=== PATIENT | male | born 1930 | race Caucasian/White ===

== ENCOUNTER 2018-11-01 06:10 | Observation (INO) ==
--- NOTE | 2018-10-19 16:12 | Anesthesia Progress Note ---
Date of Encounter: 10/19/18 Time of Encounter: 15:55 Anesthesia Note - Note Note: 10/19/18 15:55 Patient is a 88 y/o male with h/o bladder tumor scheduled for TURBT October 02. Patient's additional history includes CAD with CABG x 3, cardiac stent, 10+ years ago, Bowel resection 2003,Malignant melanoma, Robert. LE edema, and dementia. The family not wishing to not further worsen his cognitive function, does not want him to have a general anesthetic for this procedure.. They want him to have a saddle block. Since a saddle block is not without side effects, and the cardiac status of the patient hasn't been assessed in approximately 3 years, a cardiac workup is recommended before the TURBT. If cardiac status is acceptable a saddle block/spinal with a obturator nerve block would be the preferred anesthetic. The Family was given the Cardiology Office phone number to schedule an appointment. Dr. Estevan Grijalva
[2018-11-01] MEDS ORDERED: CeFAZolin Syr 2,000MG/20 ML 2,000 MG/20 ML SYRINGE IVPB ONE (06:32)
[2018-11-01] MEDS ORDERED: Ringers Solution, Lactated 1,000 ML IVC SCH (06:45)
[2018-11-01] MEDS ORDERED: Propofol 500 MG/50 ML INFUS..BTL ONE ×2 (06:48→07:11)
[2018-11-01] MEDS ORDERED: Lidocaine -MPF 2% 2 ML VIAL ONE (06:55)
[2018-11-01] MEDS ORDERED: *HR* Rocuronium Bromide 50 MG/5 ML VIAL ONE (06:55)
[2018-11-01] MEDS ORDERED: *HR* FentaNYL (PF) 100 MCG/2 ML VIAL ONE (06:58)
--- NOTE | 2018-11-01 07:10 | Anesthesia Evaluation PreOp ---
Date of Encounter: 11/01/18 Time of Encounter: 07:06 - Past History Planned Operation: TURBT Cardiac History: CO, HTN, Hyperlipidemia, Cardiac Surgery (CABG x 3) Pulmonary History: Denies Any Significant HX, Snore FIELD PARTY MANAGER History: Other (severe dementia) Other Medical History: Denies Any Significant HX Anesthesia History: No Prior Anesthetic Complications, Past Anesthesia Alcohol Use: none Drug use: none Medications and Allergies Amlodipine Besylate 5 mg PO DAILY 11/01/18 [History] Aspirin [Lo-Dose Aspirin EC] 81 mg PO DAILY 11/01/18 [History] Atorvastatin [Lipitor] 40 mg PO HS 11/01/18 [History] Divalproex Sodium 250 mg PO BID 11/01/18 [History] Furosemide [Lasix] 20 mg PO DAILY 11/01/18 [History] Lisinopril [Zestril] 20 mg PO DAILY 11/01/18 [History] Memantine HCl 5 mg PO BID 11/01/18 [History] Sertraline [Zoloft] 25 mg PO DAILY 11/01/18 [History] Allergy/AdvReac Type Severity Reaction Status Date / Time No Known Allergies Allergy Verified 11/01/18 07:31 - Meds/Allergy Pre-op Review Medications Reviewed: Yes Allergies Reviewed: Yes Beta Blockers on Current Med List: No Anesthesia Results - Labs Laboratory Tests 10/19/18 10/19/18 14:38 14:38 WBC 4.8 Hgb 10.0 L Hct 30.3 L Plt Count 152 Potassium 4.6 Creatinine 1.58 H - Imaging EKG: report reviewed (10/19/2018 SINUS RHYTHM WITH SINUS ARRHYTHMIA WITH FIRST DEGREE AV BLOCK MARKED LEFT AXIS DEVIATION RIGHT BUNDLE BRANCH BLOCK) Additional studies: 10/26/2018 Echo Impressions: LVEF 60%. Atypical septal motion consistent with post-operative status. Mild left ventricular diastolic dysfunction. Definity echo contrast was used. Right ventricle is mildly dilated with borderline mild reduction in systolic function. Mild tricuspid regurgitation. No pulmonary hypertension. Aortic Valve * Trileaflet aortic valve. * No aortic stenosis. * Aortic valve not well visualized. * Trace aortic regurgitation. Mitral Valve * Normal mitral valve structure. * No mitral stenosis. * Trace mitral regurgitation. Tricuspid Valve * Tricuspid valve not well visualized. * Mild tricuspid regurgitation. * Estimated RA pressure is 3 mmHg. * Estimated RVSP is 28 mmHg. * No pulmonary hypertension. Pulmonic Valve * Pulmonic valve is not well visualized. * No pulmonic stenosis. * No pulmonic regurgitation. Pulmonary Artery * Pulmonary artery not well visualized. Aorta * Normally sized aortic root. Pericardium * There is no pericardial effusion present. Interatrial Septum * No evidence of PFO by color Doppler. IVC * The IVC is not dilated. 10/26/2018 Stress Impression: Small sized, partially fixed moderate to severe intensity perfusion defect involving the apical lateral segments. This may represent prior infarct with gilbert-infarct ischemia. SSS=3 Pharmacologic stress ECG is negative for ischemia at level of heart rate achieved. No appreciable change from baseline ECG. Gated EF = 61%. Abnormal findings communicated to ordering provider. Anesthesia Exam O2 Sat Height 1.75 m Weight 104.326 kg O2 Sat by Pulse Oximetry 97 Vital Signs Temp Pulse Resp BP Pulse Ox 98.2 F 63 18 121/60 97 11/01/18 06:44 11/01/18 06:44 11/01/18 06:44 11/01/18 06:44 11/01/18 06:44 Height: 5'9'' Weight: 230 lbs NPO (# of Hours): 8 Pain Scale Used: Unable to assess - HEENT Pupil (Motor): EOMI Mallampati: III Teeth: Normal Oral Opening: Greater than 3 - FIELD PARTY MANAGER LOC: Confused FIELD PARTY MANAGER Motor: Normal RUE, Normal LUE, Normal RLE, Normal LLE, Normal Face FIELD PARTY MANAGER Sensory: Normal: RUE, LUE, RLE, LLE, Face - Cardiac Rhythm: Regular Murmur: None - Pulmonary Breath Sounds: bilateral Clear Respiratory Effort: Symmetrical Anesthesia Assess/Plan ASA Score: 4 (Family/POA requests SAB. Family/POA understand that there is possibility of failed spinal. Family agrees to GA if that was to happen.) Level of consciousness: Cooperative, Oriented, Tranquil Anesthetic Plan: General, Spinal Monitoring Plan: Standard Monitors Recovery Plan: PACU
--- NOTE | 2018-11-01 07:32 | Urology History & Physical ---
Date of Encounter: 11/01/18 Time of Encounter: 07:30 Assessment and Plan (1) Bladder tumor Current Visit: Yes Status: Acute Proceed with TURBT today. Patient will be brought in for outpatient in a bed status. May require placement. We will have social workers evaluate the patient. The son is comfortable with the plan of care I did add possible bilateral retrograde pyelogram and ureteral stent placement if there appears to be ureteral involvement. History of Present Illness Chief complaint: gross hematuria HPI: Mr. Hinojosa is a 88 year old male with dementia and gross hematuria. Outside imaging shows multiple large bladder tumors. Here for TURBT. He has had some new left-sided pelvic discomfort Past Med Surg Social Fam HX - Past Medical History Medical history: cancer, myocardial infarction Additional medical history: Malignant Melanoma - Forehead. Actinic Keratoses. Edema of Bilateral Lower Extremities. Colon Cancer. Anxiety. Dementia Psychiatric history: no psych history - Past Surgical History Additional surgical history: Tripple Bypass. Cardiac Stent Placement. Colon Cancer Removed. Brain Sx for Blood Clot - Social History Smoking Status: Unknown if ever smoked Smokeless Tobacco Status: No Alcohol use: none Drug use: none Medications and Allergies Allergy/AdvReac Type Severity Reaction Status Date / Time No Known Allergies Allergy Verified 11/01/18 07:31 Review of Systems ROS unobtainable: due to mental status Exam Initial Vital Signs Temp Pulse Resp BP Pulse Ox 98.2 F 63 18 121/60 97 11/01/18 06:44 11/01/18 06:44 11/01/18 06:44 11/01/18 06:44 11/01/18 06:44 - General physical appearance Present: no distress, chronically ill Urology Results - Labs All other labs normal.
[2018-11-01] MEDS ORDERED: Isovue-300 50 ML VIAL ONE (08:02)
[2018-11-01] MEDS ORDERED: EPHEDrine 50 MG/ML VIAL ONE (08:10)
--- NOTE | 2018-11-01 08:15 | Anesthesia Procedures ---
Date of Encounter: 11/01/18 Time of Encounter: 07:45 Procedures: Anesthesia - Epidural/Spinal Patient ID/Chart reviewed: Yes Patient examined: Yes Consent Obtained: Yes Supplemental Oxygen: Mask Supplemental Oxygen Rate (L/min): 10 Site Prep: Sterile prep and drape, Povidone-Iodine 1% Patient position: right lateral decubitus Local Anesthetic: Lidocaine 1% Interspace Used: L3-L4 Blood: No CSF: Yes Paresthesia: No Spinal Needle Gauge: 24 Spinal Dose: 15mg Vitals + FHT's: Last Vital Signs Temp 98.2 F 11/01/18 06:44 Pulse 63 11/01/18 06:44 Resp 18 11/01/18 06:44 BP 121/60 11/01/18 06:44 Pulse Ox 97 11/01/18 06:44
--- NOTE | 2018-11-01 10:07 | Operative Note ---
Date of procedure: 11/01/18 Pre-op diagnosis: large bladder tumor Post-op diagnosis: same Procedure: large >5 cm TURBT Anesthesia: GETA Surgeon: Peet Chiu Was there an housekeeper/laundry assistant present: No Estimated blood loss (cc): 20 Specimen: bladder tumors Condition: stable Disposition: PACU Procedure in Detail: PROCEDURE IN DETAIL: Patient was taken back to the operating room, positioned supine on the operating table. Anesthesia was applied without complication. They were moved into dorsal lithotomy. Careful attention was maintained to cushion pressure points for patient's safety. The patient was prepped and draped in sterile fashion. Time-out was performed to confirm the proper patient and procedure. The resectoscope with visual obturator was then inserted through the urethra. Once I passed the sphincter I encountered a large tumor burden within the prostatic urethra which extended all the way in to the bladder. It appears that the large bladder tumor which basically surrounded his bladder neck had extended down through the prostatic urethra. I began by resecting all visible tumor from the prostatic urethra which basically amounted to performing a TURP. The bulk of the patient's tumor burden was on the left bladder neck and extended anteriorly involving the majority of the anterior bladder wall. The tumor was very large and involved an estimated 25-50% of the bladder wall. The patient had multiple additional exophytic tumors along the posterior bladder wall which were separate from the main tumor volume near the bladder neck. Extensive resection was undertaken to remove the visible tumor surrounding the bladder neck. I did identify the right ureteral orifice and it was not involved in the resection. I avoided extensive cauterization surrounding the ureteral orifice. It appeared the left trigone was more involved by tumor and I minimized my resection around the expected area of the ureteral orifice but it was not identified during the procedure. Due to the advanced nature of this tumor complete resection was highly unlikely but I did feel that I was able to resect a bulk of the visible tumor involving his bladder and prostatic urethra. Extensive time was spent providing hemostasis by fulgurating the resection bed. I placed a 22-Russian 3-way catheter at the end of the procedure and had return of very light hematuric urine. I irrigated multiple times and there was no issue. I had an extensive conversation with the patient's family following the procedure regarding the findings during the procedure. We discussed that the tumor was more extensive than the preoperative imaging suggested. With his advanced age curative management is unlikely. We also discussed the possibility that he could develop obstruction of the ureters based on the resection. I plan to check a BMP in the morning to monitor for stability of his renal function. If his renal function worsens, nephrostomy tube placement may not be in this patient's best interest.
--- NOTE | 2018-11-01 10:10 | Anesthesia Evaluation Post Op ---
Date of Encounter: 11/01/18 Time of Encounter: 10:05 - Vital Signs Vital Signs: Vital Signs/O2 Sat/Glucose, Most Recent Temp Pulse Resp BP Pulse Ox 97.5 F L 69 16 113/62 100 11/01/18 09:19 11/01/18 09:49 11/01/18 09:49 11/01/18 09:49 11/01/18 09:49 - Lungs Lungs: Clear Ascult./Percussion (encouraged to cough with fair effort) - Airway Airway: Non-obstructed - Cardiovascular Regular Rate - Mental Status Mental Status: Baseline Status - Pain Pain Scale: 0 (offers no assessment when asked) - Nausea Vomiting Nausea Vomiting: Not Present - Hydration Hydration: Ice chips - Discharge PostOp Status: Transfer Patient to floor
[2018-11-01] MEDS ORDERED: Naloxone 0.4 MG/ML INJ IVP PRN (18:07)
[2018-11-01] MEDS ORDERED: *HR* Promethazine 25 MG/ML VIAL IVP PRN (18:07)
[2018-11-01] MEDS ORDERED: Acetaminophen IV 1,000 MG/100 ML INFUS..BTL IVPB PRN (18:07)
[2018-11-01] MEDS ORDERED: *HR* Belladonna Alkaloids/Opium 30 MG RECTAL SUPPOSITORY RC PRN (18:07)
[2018-11-01] MEDS: 0.9 % Sodium Chloride 1,000 ML IVC SCH (18:33)
[2018-11-01] MEDS: Divalproex (12 HR) 250 MG TABLET PO SCH (19:37)
[2018-11-02 02:20] LABS: Basophils % 0.4 %; Eosinophils % 0.5 %; Hematocrit 25.3 % (37.5-50.1); Hemoglobin 8.4 g/dL (12.9-16.9); Immature Granulocytes % 0.2 % (0-4); Lymphocytes # 0.4 K/mcL (0.6-4.6); Lymphocytes % 6.5 %; Mean Corpuscular HGB Conc 33.2 g/dL (31.6-35.5); Mean Corpuscular Hemoglobin 32.7 pg (28.0-33.3); Mean Corpuscular Volume 98.4 fL (83.0-100.0); Mean Platelet Volume 10.7 fL (9.4-12.4); Monocytes # 0.5 K/mcL (0.0-1.3); Monocytes % 9.7 %; Neutrophils # 4.6 K/mcL (1.6-8.9); Platelet Count 111 K/mcL (140-400); Red Blood Count 2.57 M/mcL (4.19-5.50); Red Cell Distribution Width 14.9 % (11.5-14.5); Segmented Neutrophils % 82.7 %; White Blood Count 5.6 K/mcL (4.3-11.1)
[2018-11-02] MEDS: Lisinopril 20 MG TABLET PO SCH (08:07)
[2018-11-02] MEDS: Furosemide 20 MG TABLET PO SCH (08:07)
[2018-11-02] MEDS: Divalproex (12 HR) 250 MG TABLET PO SCH ×2 (08:07→20:53)
[2018-11-02 08:14] LABS: BUN/Creatinine Ratio 23 (6-26); Blood Urea Nitrogen 30 mg/dL (8-23); Calcium 8.5 mg/dL (8.6-10.3); Carbon Dioxide 29 mEq/L (23-29); Chloride 103 mEq/L (98-107); Glucose 66 mg/dL (70-105); Osmolality,Calculated 288 (280-300); Potassium 5.1 mEq/L (3.5-5.1); Sodium 137 mEq/L (136-145); eGFR For African Americans > 60 (> 60); eGFR For Non-African Americans 51 (> 60)
[2018-11-02] MEDS: 0.9 % Sodium Chloride 1,000 ML IVC SCH (08:18)
[2018-11-02] MEDS ORDERED: amLODIPine 5 MG TABLET PO SCH (09:00)
--- NOTE | 2018-11-02 09:07 | Urology Progress Note ---
<Jeanna Zuniga N - Last Filed: 11/02/18 09:04> Date of Encounter: 11/02/18 Time of Encounter: 08:05 - Assessment and Plan (1) Bladder tumor Current Visit: Yes Status: Acute Assessment and plan: Patient is an 88-year-old male who presents one day status post TURBT for a large, greater than 5 cm bladder tumor. Unfortunately, patient traumatically displaced his catheter overnight, and a new catheter was replaced. CBI was discontinued, and urine is a transparent, fruit punch color. I will discuss these findings with Dr. Chiu to see if patient will be discharged with or without his catheter. We are awaiting a social work consultation in order to see if patient can be placed at a fci facility upon discharge. Progress Note Narrative: POD #1. Patient seen and examined sitting upright in bed in no apparent distress. Patient's son and OCCUPATIONAL ANALYST sitter is at bedside. Campa catheter is indwelling and draining transparent, fruit punch urine into bedside bag. Objective Initial Vital Signs Temp Pulse Resp BP Pulse Ox 98.2 F 63 18 121/60 97 11/01/18 06:44 11/01/18 06:44 11/01/18 06:44 11/01/18 06:44 11/01/18 06:44 - General physical appearance Present: no distress, no pain - Respiratory Present: normal expansion, normal respiratory effort - Abdomen Present: soft, non tender. Absent: distended - Genitourinary Urine Appearance: Present: Hematuria (Transparent fruit punch) - Integumentary Present: no rash, no abnormal pigmentation - Musculoskeletal Present: normal posture - Psychiatric Present: oriented to person, speech is normal, other (Patient with dementia). Absent: oriented to time, oriented to place, memory intact - Labs 11/02/18 01:40 11/02/18 07:28 Diabetes panel 11/02/18 Range/Units 07:28 Sodium 137 (136-145) mEq/L Potassium 5.1 (3.5-5.1) mEq/L Chloride 103 (98-107) mEq/L Carbon Dioxide 29 (23-29) mEq/L BUN 30 H (8-23) mg/dL Creatinine 1.32 H (0.70-1.30) mg/dL Glucose 66 L (70-105) mg/dL Calcium 8.5 L (8.6-10.3) mg/dL Calcium panel 11/02/18 Range/Units 07:28 Calcium 8.5 L (8.6-10.3) mg/dL Pituitary panel 11/02/18 Range/Units 07:28 Sodium 137 (136-145) mEq/L Potassium 5.1 (3.5-5.1) mEq/L Chloride 103 (98-107) mEq/L Carbon Dioxide 29 (23-29) mEq/L BUN 30 H (8-23) mg/dL Creatinine 1.32 H (0.70-1.30) mg/dL Glucose 66 L (70-105) mg/dL Calcium 8.5 L (8.6-10.3) mg/dL Adrenal panel 11/02/18 Range/Units 07:28 Sodium 137 (136-145) mEq/L Potassium 5.1 (3.5-5.1) mEq/L Chloride 103 (98-107) mEq/L Carbon Dioxide 29 (23-29) mEq/L BUN 30 H (8-23) mg/dL Creatinine 1.32 H (0.70-1.30) mg/dL Glucose 66 L (70-105) mg/dL Calcium 8.5 L (8.6-10.3) mg/dL Consult Discharge Plan - Plan Referrals: Otto Cheatham, [Primary Care Provider] - <Pete Chiu - Last Filed: 11/02/18 17:07> Date of Encounter: 11/02/18 - Assessment and Plan (1) Bladder tumor Current Visit: Yes Status: Acute Assessment and plan: Patient seen and examined by Ilia in the afternoon. Agree with physician assistant site manager assessment and plan. Patient was denied fci placement at the first facility. Kidney function is stable. Urine is starting to clear and his transparent set afternoon. We have elected to remove the catheter to minimize potential for traumatic catheter removal Objective Initial Vital Signs Temp Pulse Resp BP Pulse Ox 98.2 F 63 18 121/60 97 11/01/18 06:44 11/01/18 06:44 11/01/18 06:44 11/01/18 06:44 11/01/18 06:44 - Labs 11/02/18 01:40 11/02/18 07:28 Diabetes panel 11/02/18 Range/Units 07:28 Sodium 137 (136-145) mEq/L Potassium 5.1 (3.5-5.1) mEq/L Chloride 103 (98-107) mEq/L Carbon Dioxide 29 (23-29) mEq/L BUN 30 H (8-23) mg/dL Creatinine 1.32 H (0.70-1.30) mg/dL Glucose 66 L (70-105) mg/dL Calcium 8.5 L (8.6-10.3) mg/dL Calcium panel 11/02/18 Range/Units 07:28 Calcium 8.5 L (8.6-10.3) mg/dL Pituitary panel 11/02/18 Range/Units 07:28 Sodium 137 (136-145) mEq/L Potassium 5.1 (3.5-5.1) mEq/L Chloride 103 (98-107) mEq/L Carbon Dioxide 29 (23-29) mEq/L BUN 30 H (8-23) mg/dL Creatinine 1.32 H (0.70-1.30) mg/dL Glucose 66 L (70-105) mg/dL Calcium 8.5 L (8.6-10.3) mg/dL Adrenal panel 11/02/18 Range/Units 07:28 Sodium 137 (136-145) mEq/L Potassium 5.1 (3.5-5.1) mEq/L Chloride 103 (98-107) mEq/L Carbon Dioxide 29 (23-29) mEq/L BUN 30 H (8-23) mg/dL Creatinine 1.32 H (0.70-1.30) mg/dL Glucose 66 L (70-105) mg/dL Calcium 8.5 L (8.6-10.3) mg/dL
[2018-11-03] MEDS: Furosemide 20 MG TABLET PO SCH (10:38)
[2018-11-03] MEDS: Lisinopril 20 MG TABLET PO SCH (10:38)
[2018-11-03] MEDS: Divalproex (12 HR) 250 MG TABLET PO SCH (10:38)
[2018-11-03 12:01] VITALS: BP 119/64
--- NOTE | 2018-11-03 12:14 | Event Note ---
Date of Encounter: 11/03/18 Time of Encounter: 12:14 Patient still has low temperatures and gross hematuria. Vitals appear stable. I ordered hemoglobin and hematocrit to be done today to confirm his anemia has not worsened.
[2018-11-03 12:44] LABS: Hematocrit 24.6 % (37.5-50.1); Hemoglobin 8.1 g/dL (12.9-16.9)
--- NOTE | 2018-11-03 13:55 | Discharge Summary ---
Date of Encounter: 11/03/18 Time of Encounter: 11:45 - Discharge Diagnosis (1) Bladder tumor Priority: Primary Status: Acute - Hospital Course Hospital course: Mr. Hinojosa is a 88 year old male who presents with a history of a large bladder tumor. On 11/01/2018, patient was taken to the operating room where he underwent a transurethral resection of bladder tumor, greater than 5 cm. There were no surgical complications, and the patient tolerated the procedure well. Postoperatively, patient experienced some hematuria, and CBI was initiated. Unfortunately, on postoperative day #1, the patient traumatically displaced his catheter. A new catheter was replaced, and irrigation was resumed. Patient's urine improved, and the Campa catheter was discontinued prior to discharge. Patient has experienced difficulty in maintaining a normal body temperature, as he experienced some hypothermia. H&H was reevaluated on postoperative day #2, and found to be stabilized. Patient [facility] placement at detention facility to continue care. Postoperative expectations, restrictions, activity and follow-up were discussed with patient, and his son who verbalized understanding. Time spent discussing smoking cessation with patient: 3 to 10 minutes - Time Spent with Patient Total time spent providing and/or coordinating discharge services: Less than 30 minutes Procedures and tests throughout hospitalization: Transurethral resection of bladder tumor, large greater than 5 cm Labs on day of discharge: Labs from last 24 hours 11/03/18 12:22 Hgb 8.1 L Hct 24.6 L - Discharge Medications Prescriptions: Continued Amlodipine Besylate 5 mg PO DAILY Atorvastatin [Lipitor] 40 mg PO HS Divalproex Sodium 250 mg PO BID Furosemide [Lasix] 20 mg PO DAILY Lisinopril [Zestril] 20 mg PO DAILY Memantine HCl 5 mg PO BID Sertraline [Zoloft] 25 mg PO DAILY Discontinued Aspirin [Lo-Dose Aspirin EC] 81 mg PO DAILY Home Medications: Amlodipine Besylate 5 mg PO DAILY 11/01/18 [History] Atorvastatin [Lipitor] 40 mg PO HS 11/01/18 [History] Divalproex Sodium 250 mg PO BID 11/01/18 [History] Furosemide [Lasix] 20 mg PO DAILY 11/01/18 [History] Lisinopril [Zestril] 20 mg PO DAILY 11/01/18 [History] Memantine HCl 5 mg PO BID 11/01/18 [History] Sertraline [Zoloft] 25 mg PO DAILY 11/01/18 [History] Allergies/Adverse Reactions: Allergy/AdvReac Type Severity Reaction Status Date / Time No Known Allergies Allergy Verified 11/01/18 07:31 Date of admission: 11/02/18 14:40 Primary care physician: Otto Cheatham DO Consults: 11/01/18 13:20 Consult to Occupational Therapy [CONS] Routine Comment: Evaluate, develop and implement POC Reason for Consult: WEAKNESS, POSSIBLE PLACEMENT Does patient have active BEDREST order?: No Is patient medically & hemodynamically stable?: Yes Consult to Physical Therapy [CONS] Routine Comment: Evaluate, develop and implement POC Reason for Consult: WEAKNESS, POSSIBLE PLACEMENT Does patient have active BEDREST order?: No Is patient medically & hemodynamically stable?: Yes 11/01/18 14:10 Consult to Yarn Winder [CONS] Routine Reason for SW Consult: POSSIBLE PLACEMENT 11/01/18 18:07 Consult to Yarn Winder [CONS] Routine Reason for SW Consult: possible ECF placement 11/02/18 07:31 Consult to Yarn Winder [CONS] Routine Reason for SW Consult: ECF Placement Discharging clinician: Jeanna Zuniga Anticipated date of discharge: 11/03/18 Exam Initial Vital Signs Temp Pulse Resp BP Pulse Ox 98.2 F 63 18 121/60 97 11/01/18 06:44 11/01/18 06:44 11/01/18 06:44 11/01/18 06:44 11/01/18 06:44 - General physical appearance Present: no distress, no pain - Eyes Present: PERRL, normal ocular movement - ENT Present: no congestion, decreased hearing - Neck Present: no masses, trachea midline, no lymphadenopathy - Respiratory Present: normal respiratory effort - Cardiovascular Cardiovascular exam IM: RRR - Abdomen Abdomen: Present: soft, non tender. Absent: distended - Genitourinary other (Dry attends, nurse reports history of transparent fruit punch urine/pink lemonade urine ) - Integumentary Present: no rash, no abnormal pigmentation - Neurologic Present: disoriented, confused (patient with history of dementia ) - Musculoskeletal Present: other (normal posture ) - Patient Status Disposition: Transfer SNF Condition: Good Functional capacity at discharge: uses cane/walker Overall status at discharge: patient is progressing back to baseline - Discharge Instructions Follow Up With: Otto Cheatham, [Primary Care Provider] - Pete Chiu MD [Partnered Physician] - Additional Instructions: Call if fever greater than 101 degrees. May expect blood in the urine. May expect irritating voiding symptoms such as frequency, hesitancy, burning, urgency. Okay to use Azo [id number]. Okay to shower. No tub baths, hot tubs, or swimming. No lifting greater than 20 pounds or heavy activity. Okay to use [id number] stool softeners twice daily. - Diet and Activity Activity: increase activity as tolerated Diet: advance to your usual diet
--- NOTE | 2018-11-03 14:50 | Physician Discharge Referral ---
ExtendedCare Referral Info Transfer To: [facility] Provider in Charge after Transfer: PCP Institutional Level of Care: Skilled - Diagnosis (1) Bladder tumor Priority: Primary Status: Acute Expected Duration of Placement: 4 weeks Prognosis: Good Aware of Diagnosis: Patient, Family Aware of Prognosis: Patient, Family - Transfer Medications Home Medications: Amlodipine Besylate 5 mg PO DAILY 11/01/18 [History] Atorvastatin [Lipitor] 40 mg PO HS 11/01/18 [History] Divalproex Sodium 250 mg PO BID 11/01/18 [History] Furosemide [Lasix] 20 mg PO DAILY 11/01/18 [History] Lisinopril [Zestril] 20 mg PO DAILY 11/01/18 [History] Memantine HCl 5 mg PO BID 11/01/18 [History] Sertraline [Zoloft] 25 mg PO DAILY 11/01/18 [History] Allergies/Adverse Reactions: Allergy/AdvReac Type Severity Reaction Status Date / Time No Known Allergies Allergy Verified 11/01/18 07:31 - Respiratory Orders Smoking Cessation: Smoking cessation has been advised. For more information, call the [place] Tobacco Quit Line at 9-835-KLLI-NOW. - Advance Directives Code Status: Full Code - Mobility Orders Chair, Ambulate (With assist) - Rehabiliation Orders Rehab Potential: Good Rehab Orders: Evaluation for Physical Therapy, Evaluation for Occupational Therapy - Diet Orders Regular CERTIFICATION: I certify that the transfer of the above named patient to an Extended Care Facility is necessary for the continuing treatment of the diagnosis listed. The above information is true and accurate reflection of patient's current condition. Confidential - Redisclosure prohibited without a patient's written consent.
== END 2018-11-03 16:10 ==
LOC: 3BNU 06:10 → SAMDAY 06:10 → 3BNU 11:24
PROVIDERS: ADMIT Urology; ATTEND Urology